=== PATIENT | female | born 1990 | race American Indian/Alaskan Native ===

== ENCOUNTER 2018-07-08 20:24 | Emergency (ER) | payer MEDICAID ==
[2018-07-08 21:13] LABS: Bacteria,Urine 1+ /HPF (Negative); Bilirubin,Urine NEG (Negative); Blood,Urine NEG (Negative); Color,Urine Yellow (Yellow); Mucus,Urine 3+ /HPF
[2018-07-08 21:16] LABS: HCG Qualitative,Urine Negative (Negative)
[2018-07-08 21:29] LABS: Basophils % (Auto) 0.3 % (0.0-1.8); Eosinophils % (Auto) 0.2 % (0.0-4.3); Hemoglobin 12.8 gm/dl (10.1-14.3); Lymphocytes # (Auto) 0.4 K/mm3 (1.2-5.4); Mean Corpuscular HGB Conc 33 % (30-34); Mean Corpuscular Volume 85 fl (79-97); Monocytes # (Auto) 0.7 K/mm3 (0.0-0.8); Platelet Count 257 K/mm3 (140-440); Red Blood Count 4.58 M/mm3 (3.65-5.03); Red Cell Distribution Width 13.8 % (13.2-15.2)
[2018-07-08 21:35] LABS: BUN/Creatinine Ratio 11; Blood Urea Nitrogen 8 mg/dL (7-17); Calcium 9.4 mg/dL (8.4-10.2); Hemolysis Index 7
[2018-07-08] MEDS ORDERED: TORADOL IV ONE (23:39)
[2018-07-08] MEDS ORDERED: ZOFRAN IV ONE (23:40)
[2018-07-08] MEDS ORDERED: NACL 0.9% 1000 ML 1,000 ML IV ONE (23:40)
--- NOTE | 2018-07-08 23:41 | Emergency Department Report ---
ED General Adult HPI - General Chief complaint: Abdominal Pain Stated complaint: FLU Source: patient Mode of arrival: Ambulatory Limitations: No Limitations - History of Present Illness Initial comments: Pt is a 28yo female who presents to the ED with c/o suprapubic and RLQ abdominal pain that began two days ago. She has associated bilateral lower back pain and N/V. The patient denies any fever or urinary sx. She is able to tolerate fluids. The patient states she also has rhinorrhea, cough, and body aches. She has a sick contact at home with URI sx. Pt states she took some equate this morning which did not relieve her pain. Pt uses the depo shot for control. Severity scale (0 -10): 10 - Related Data Previous Rx's Medication Instructions Recorded Last Taken Type Nitrofurantoin Monohyd/M-Cryst 100 mg PO BID 5 Days #10 capsule 07/09/18 Unknown Rx [Macrobid 100 mg Capsule] Ondansetron [Zofran Odt] 4 mg PO Q8HR PRN #8 tab.rapdis 07/09/18 Unknown Rx Phenazopyridine [Pyridium] 200 mg PO BID #10 tab 07/09/18 Unknown Rx Allergies Allergy/AdvReac Type Severity Reaction Status Date / Time amoxicillin Allergy Anaphylaxis Verified 07/08/18 20:32 ED Review of Systems ROS: Stated complaint: FLU Other details as noted in HPI Comment: All other systems reviewed and negative ED Past Medical Hx - Social History Smoking Status: Current Some Day Smoker Substance Use Type: Alcohol - Medications Home Medications: Home Medications Medication Instructions Recorded Confirmed Last Taken Type Nitrofurantoin Monohyd/M-Cryst 100 mg PO BID 5 Days #10 capsule 07/09/18 Unknown Rx [Macrobid 100 mg Capsule] Ondansetron [Zofran Odt] 4 mg PO Q8HR PRN #8 tab.rapdis 07/09/18 Unknown Rx Phenazopyridine [Pyridium] 200 mg PO BID #10 tab 07/09/18 Unknown Rx ED Physical Exam - General Limitations: No Limitations General appearance: alert, in no apparent distress - Head Head exam: Present: atraumatic, normocephalic - ENT ENT exam: Present: normal orophraynx, mucous membranes moist, other (nasal turbinates normal bilaterally ) - Neck Neck exam: Present: normal inspection, full ROM. Absent: tenderness - Respiratory Respiratory exam: Present: normal lung sounds bilaterally. Absent: respiratory distress, wheezes, rales, rhonchi, stridor, chest wall tenderness, accessory muscle use, decreased breath sounds, prolonged expiratory - Cardiovascular Cardiovascular Exam: Present: regular rate, normal rhythm, normal heart sounds. Absent: systolic murmur, rubs, gallop - GI/Abdominal GI/Abdominal exam: Present: soft, tenderness (mild RLQ and suprapubic tenderness ), normal bowel sounds. Absent: distended, guarding, rebound, rigid - Neurological Exam Neurological exam: Present: alert, oriented X3 - Psychiatric Psychiatric exam: Present: normal affect, normal mood - Skin Skin exam: Present: warm, dry, intact ED Course Vital Signs 07/08/18 07/09/18 20:34 03:33 Temperature 99.6 F 98.4 F Pulse Rate 115 H 72 Respiratory 18 14 Rate Blood Pressure 118/75 Blood Pressure 105/53 [Left] O2 Sat by Pulse 100 100 Oximetry - Reevaluation(s) Reevaluation #1: 07/09/18 04:28 called [address] report to be read, still waiting for report to be read ED Medical Decision Making - Lab Data Result diagrams: 07/08/18 21:01 07/08/18 21:01 Laboratory Results - last 24 hr 07/08/18 07/08/18 07/08/18 20:49 21:01 21:01 WBC 6.7 RBC 4.58 Hgb 12.8 Hct 39.0 MCV 85 MCH 28 MCHC 33 RDW 13.8 Plt Count 257 Lymph % (Auto) 6.0 L [place] % (Auto) 10.0 H Eos % (Auto) 0.2 Baso % (Auto) 0.3 Lymph # 0.4 L [place] # 0.7 Eos # 0.0 Baso # 0.0 Seg Neutrophils % 83.5 H Seg Neutrophils # 5.6 Sodium 138 Potassium 4.3 Chloride 101.0 Carbon Dioxide 24 Anion Gap 17 BUN 8 Creatinine 0.7 Estimated GFR > 60 BUN/Creatinine Ratio 11 Glucose 99 Calcium 9.4 Urine Color Yellow Urine Turbidity Clear Urine pH 7.0 Ur Specific Rodney 1.029 Urine Protein 100 mg/dl Urine Glucose (UA) Neg Urine Ketones Tr Urine Blood Neg Urine Nitrite Neg Urine Bilirubin Neg Urine Urobilinogen 2.0 Ur Leukocyte Esterase Sm Urine WBC (Auto) 3.0 Urine RBC (Auto) 3.0 U Epithel Cells (Auto) 12.0 Urine Bacteria (Auto) 1+ Urine Mucus 3+ Urine HCG, Qual Negative Influenza A (Rapid) Influenza B (Rapid) 07/08/18 Unknown WBC RBC Hgb Hct MCV MCH MCHC RDW Plt Count Lymph % (Auto) [place] % (Auto) Eos % (Auto) Baso % (Auto) Lymph # [place] # Eos # Baso # Seg Neutrophils % Seg Neutrophils # Sodium Potassium Chloride Carbon Dioxide Anion Gap BUN Creatinine Estimated GFR BUN/Creatinine Ratio Glucose Calcium Urine Color Urine Turbidity Urine pH Ur Specific Rodney Urine Protein Urine Glucose (UA) Urine Ketones Urine Blood Urine Nitrite Urine Bilirubin Urine Urobilinogen Ur Leukocyte Esterase Urine WBC (Auto) Urine RBC (Auto) U Epithel Cells (Auto) Urine Bacteria (Auto) Urine Mucus Urine HCG, Qual Influenza A (Rapid) Negative Influenza B (Rapid) Negative - Radiology Data Radiology results: report reviewed PROCEDURE: CT ABDOMEN PELVIS W CON TECHNIQUE: Axial images of the abdomen and pelvis obtained with intravenous contrast and no oral contrast. Sagittal and coronal reconstructions also obtained. HISTORY: RLQ and suprapubic pain COMPARISONS: No priors FINDINGS: Images through the lung bases show no evidence of airspace consolidation or pleural effusions. Tiny nonspecific hepatic hypodensity, which may represent small cysts, too small to characterize. Hypodense lesion in the spleen measuring approximately 2.8 cm in diameter, with attenuation higher than expected for a simple cyst. The remainder of the splenic parenchyma is homogeneous area No obstructive uropathy. Gallbladder and pancreas within normal limits. No bowel obstruction or free intraperitoneal air. No evidence of colitis or diverticulitis. Normal appendix. No signs of appendicitis or inflammatory changes in the right lower quadrant. Uterus and urinary bladder within normal limits. No inflammatory changes or abnormal fluid collections in the abdomen or pelvis. Trace nonspecific fluid in the pelvis. IMPRESSION: No inflammatory changes in the abdomen or pelvis. 2.8 cm indeterminate lesion in the spleen with attenuation higher than expected for a simple cyst. Short interval follow-up recommended to assess for stability. No signs of appendicitis or inflammatory changes in the right lower quadrant. This document is electronically signed by Baldomero De Anda MD., July 09 2018 04:40:25 AM ET - Medical Decision Making Pt presents with RLQ, suprapubic pain for 2 days. Has associated emesis and bilateral lower back pain. urine with possible UTI. CT abd/pelvis no acute findings except for small lesion in the spleen that needs follow up. Will send pt to GI. Will give pt zofran and pyridium and antibiotics for UTI. Also advised to follow up with PCP in the next 2-3days. Also with URI sx. Flu is negative. Advised pt to treat symptomatically. VSS. Return to ED if new or worsening symptoms Critical care attestation.: If time is entered above; I have spent that time in minutes in the direct care of this critically ill patient, excluding procedure time. ED Disposition Clinical Impression: Lesion of spleen Abdominal pain Qualifiers: Abdominal location: unspecified location Qualified Code(s): R10.9 - Unspecified abdominal pain UTI (urinary tract infection) Qualifiers: Urinary tract infection type: acute cystitis Hematuria presence: without hematuria Qualified Code(s): N30.00 - Acute cystitis without hematuria URI (upper respiratory infection) Qualifiers: URI type: unspecified URI Qualified Code(s): J06.9 - Acute upper respiratory infection, unspecified Disposition: TO HOME OR SELFCARE Is pt being admited?: No Does the pt Need Aspirin: No Condition: Stable Instructions: Abdominal Pain (ED), Urinary Tract Infection in Women (ED), Upper Respiratory Infection (ED) Additional Instructions: Follow up with primary care doctor in the next 2-3 days. Take medication as prescribed. Follow up with GI for lesion on the spleen. Return to emergency room if new or worsening symptoms. Prescriptions: Nitrofurantoin Monohyd/M-Cryst [Macrobid 100 mg Capsule] 100 mg PO BID 5 Days #10 capsule Phenazopyridine [Pyridium] 200 mg PO BID #10 tab Ondansetron [Zofran Odt] 4 mg PO Q8HR PRN #8 tab.rapdis PRN Reason: Nausea Referrals: PRIMARY CARE,MD [Primary Care Provider] - 3-5 Days Time of Disposition: 04:52 Print Language: TOGOLESE
[2018-07-09] MEDS ORDERED: TYLENOL ONE (01:51)
[2018-07-09] MEDS ORDERED: TYLENOL PO ONE (04:08)
[2018-07-09 04:34] VITALS: BP 105/53
--- NOTE | 2018-07-09 04:42 | Cat Scan Report ---
PROCEDURE: CT ABDOMEN PELVIS W CON TECHNIQUE: Axial images of the abdomen and pelvis obtained with intravenous contrast and no oral con trast. Sagittal and coronal reconstructions also obtained. HISTORY: RLQ and suprapubic pain COMPARISONS: No priors FINDINGS: Images through the lung bases show no evidence of airspace consolidation or pleural effusions. Tiny nonspecific hepatic hypodensity, which may represent small cysts, too small to characterize. Hypodense lesion in the spleen measuring approximately 2.8 cm in diameter, with attenuation higher th an expected for a simple cyst. The remainder of the splenic parenchyma is homogeneous area No obstructive uropathy. Gallbladder and pancreas within normal limits. No bowel obstruction or free intraperitoneal air. No evidence of colitis or diverticulitis. Normal appendix. No signs of appendicitis or inflammatory changes in the right lower quadrant. Uterus and urinary bladder within normal limits. No inflammatory changes or abnormal fluid collections in the abdomen or pelvis. Trace nonspecific fluid in the pelvis. IMPRESSION: No inflammatory changes in the abdomen or pelvis. 2.8 cm indeterminate lesion in the spleen with attenuation higher than expected for a simple cyst. Sh ort interval follow-up recommended to assess for stability. No signs of appendicitis or inflammatory changes in the right lower quadrant. This document is electronically signed by Baldomero De Anda MD., July 09 2018 04:40:25 AM ET
== END 2018-07-09 05:48 | disposition home or self-care (01) ==
LOC: ED 20:24
DX: D73.89 Other diseases of spleen (principal); N39.0 Urinary tract infection, site not specified; J06.9 Acute upper respiratory infection, unspecified; F17.200 Nicotine dependence, unspecified, uncomplicated; Z88.1 Allergy status to other antibiotic agents
CPT/HCPCS: 36415; 74177; 80048; 81001; 81025; 85025; 87400; 96361; 96374; 96375; 99284; J1885; J2405; J7030; Q9967